=== PATIENT | male | born 1975 | race Two or more races ===

== ENCOUNTER 2021-09-09 00:41 | Emergency (ER) | payer MEDICAID ==
[~2021-09-09] VITALS: Ht 162.6 cm; Wt 57.2 kg
[2021-09-09 01:20] VITALS: BP_SYST 135
--- NOTE | 2021-09-09 01:20 | NUR ---
Patient presents emergency room c/o of sharp left-sided chest wall pain. Patient also states that he has some numbness in both his upper and lower extremities. He denies any weakness. Patient states that his symptoms started about half an hour prior to arrival. Patient is fully vaccinated with Covid vaccine and "booster" about 1 week ago. Patient also complains of feeling a little short of breath. States that he has these symptoms intermittently since his booster. Has no other complaints at this time. Patient breathing easy, resp even unlabored. Patient ambulatory with steady gait. To waiting room awaiting ER MD evaluation.
--- NOTE | 2021-09-09 01:27 | NUR ---
ER in triage examining patient.
[2021-09-09 02:36] LABS: BASOPHILS % (AUTO) 0.3 % (0.0-2.0); EOSINOPHILS % (AUTO) 0.2 % (0.0-4.0); HEMATOCRIT 45.9 % (36-54); HEMOGLOBIN 15.3 g/dL (14.0-18.0); LYMPHOCYTES # (AUTO) 1.3 K/uL (1.0-5.5); LYMPHOCYTES % (AUTO) 12.8 % (20.5-51.5); MEAN CORPUSCULAR HEMOGLOBIN 30 pg (27-31); MEAN CORPUSCULAR HGB CONC 34 % (32-36); MEAN CORPUSCULAR VOLUME 89 fL (79.0-98.0); MONOCYTES # (AUTO) 0.5 K/uL (0.0-1.0); MONOCYTES % (AUTO) 4.9 % (1.7-9.3); NEUTROPHILS # (AUTO) 8.4 K/uL (1.8-7.7); NEUTROPHILS % (AUTO) 81.8 % (40.0-70.0); PLATELET COUNT (AUTO) 234 K/uL (130-430); RED BLOOD CELL COUNT(AUTO) 5.13 MIL/uL (4.2-6.2); WHITE BLOOD COUNT (AUTO) 10.2 K/uL (4.8-10.8)
[2021-09-09 02:53] LABS: CALCIUM 8.8 mg/dL (8.4-11.0); CREATININE 1.33 mg/dL (0.55-1.30); POTASSIUM 4.6 mmol/L (3.5-5.1)
[2021-09-09 02:58] LABS: ALBUMIN 3.7 g/dL (3.4-4.8); TOTAL BILIRUBIN 0.4 mg/dL (0.0-1.0)
[2021-09-09 07:26] VITALS: BP_SYST 135
--- NOTE | 2021-09-09 07:26 | NUR ---
Patient given written and verbal discharge instructions and verbalizes understanding. ER MD discussed with patient the results and treatment provided. Patient in stable condition. ID arm band removed. Rx of none given. Patient educated on pain management and to follow up with PMD. Pain Scale 0/10 Opportunity for questions provided and answered. Medication side effect fact sheet provided.
[2021-09-09] MEDS ORDERED: KETAMINE 30 MG/3 ML SYRINGE ONE (10:29)
== END 2021-09-09 07:26 | disposition home or self-care (01) ==
LOC: SED 00:41
DX: R07.89 Other chest pain (principal); F41.9 Anxiety disorder, unspecified; Z88.5 Allergy status to narcotic agent; Z88.6 Allergy status to analgesic agent; Z88.7 Allergy status to serum and vaccine
CPT/HCPCS: 36415; 72125-TC; 72128; 72131; 76376; 80053; 84484; 85025; 85379; 93005; 99285